=== PATIENT | female | born 1965 | race Two or more races ===

== ENCOUNTER 2022-03-17 19:51 | Emergency (ER) | payer MEDICARE, OTHER ==
[~2022-03-17] VITALS: Ht 152.4 cm; Wt 88.5 kg
[2022-03-17 20:55] LABS: BASOPHILS # (AUTO) 0.2 K/uL (0.0-0.2); BASOPHILS % (AUTO) 2.6 % (0.0-2.0); EOSINOPHILS % (AUTO) 2.5 % (0.0-6.0); HEMATOCRIT 37 % (33-45); HEMOGLOBIN 12.5 g/dL (11.5-14.8); LYMPHOCYTES # (AUTO) 3.1 K/uL (0.8-4.8); LYMPHOCYTES % (AUTO) 32.6 % (20.0-44.0); MEAN CORPUSCULAR HGB CONC 34 g/dl (31.0-36.0); MEAN CORPUSCULAR VOLUME 81 fL (82-100); MONOCYTES # (AUTO) 0.8 K/uL (0.1-1.30); NEUTROPHILS % (AUTO) 53.3 % (43.0-81.0); PLATELET COUNT (AUTO) 326 K/uL (150-450); RED BLOOD CELL COUNT(AUTO) 4.64 MIL/uL (4.0-5.2); WHITE BLOOD COUNT (AUTO) 9.4 K/uL (4.3-11.0)
--- NOTE | 2022-03-17 21:00 | NUR ---
NADEEM [facility] BY [facility] FOR C/O ABNORMAL POTASSIUM AND CHRONIC SORE THROAT. PT AWAKE AND ALERT X3 BREATHING UNLABORED V/S WNL.
[2022-03-17 21:05] LABS: CALCIUM, SERUM 9.2 mg/dL (8.5-10.1); CREATININE 0.7 mg/dL (0.6-1.3); POTASSIUM 3.6 mmol/L (3.5-5.1)
[2022-03-17 21:10] LABS: ALBUMIN 2.9 g/dL (3.4-5.0); BILIRUBIN,DIRECT 0.1 mg/dL (0.0-0.2); BILIRUBIN,TOTAL 0.2 mg/dL (0.2-1.0); TOTAL PROTEIN, SERUM 6.8 g/dL (6.4-8.2)
--- NOTE | 2022-03-17 22:23 | NUR ---
REPORT GIVEN TO MIRANDA AT [facility]. [facility] ETA 75-90 MINS
--- NOTE | 2022-03-17 23:15 | NUR ---
BEDSIDE REPORT PROVIDED TO [facility]
--- NOTE | 2022-03-17 23:31 | NUR ---
PT PICKED UP BY [facility] FOR TRANSPORT BACK TO [facility]
[2022-03-18 02:16] VITALS: BP 161/110
== END 2022-03-17 23:34 | disposition home or self-care (01) ==
LOC: ER 19:55
DX: Z00.00 Encounter for general adult medical examination without abnormal findings (principal); I10 Essential (primary) hypertension; E11.9 Type 2 diabetes mellitus without complications; J44.9 Chronic obstructive pulmonary disease, unspecified; F20.9 Schizophrenia, unspecified; F31.9 Bipolar disorder, unspecified
CPT/HCPCS: 36415; 80048-TC; 80076-TC; 85025-TC; 85730-TC